=== PATIENT | female | born 1950 | race Caucasian/White ===

== ENCOUNTER 2017-01-20 11:24 | Day surgery (SDC) | payer MEDICARE, OTHER ==
[2017-01-18 11:43] LABS: HEMATOCRIT 43.5 % (36.0-48.0); HEMOGLOBIN 14.7 g/dL (12.0-16.0)
[2017-01-18 11:56] LABS: CALCIUM, SERUM 9.8 MG/DL (8.5-10.4); CHLORIDE, SERUM 99 MMOL/L (96-112); CO2 (CARBON DIOXIDE) 33 MMOL/L (24-34); CREATININE 0.99 MG/DL (0.55-1.02); GFR AFRICAN AMERICAN 69 ML/MIN (>=60); GFR NON AFRICAN AMERICAN 60 ML/MIN (>=60); GLUCOSE, SERUM 102 MG/DL (60-99); SODIUM, SERUM 141 MMOL/L (135-148)
[2017-01-18 11:57] LABS: BUN (BLOOD UREA NITROGEN) 22 MG/DL (6-23)
[2017-01-18 11:59] LABS: ASCORBIC ACID (UR NOT ORDER) NEG (NEG); BILIRUBIN, URINE NEGATIVE (NEG); KETONE, URINE NEGATIVE (NEG); LEUKOCYTE ESTERASE(NOT OR SMALL (NEG); WBC (NOT ORDERED) (RFLEX) 6 (0-5)
--- NOTE | ~2017-01-20 | OP ---
Record Of Operation [facility] [address] [place]. [address] NAME: RAMIN REA : 52 STATUS : [facility]#: [id number] AGE: 66 ADM/REG DATE : 01/20/17 MR#: [id number] REPORT SERV DATE: 01/20/17 DICTATED BY: ROEL RHODES DATE: 01/20/17 REPORT STATUS : Draft TRANSCRIBED BY: MODL DATE: 01/20/17 DATE OF PROCEDURE: 01/20/2017 SURGEON: Roel Rhodes M.D. TITLE OF OPERATION: Cystourethroscopy, transurethral resection of bladder tumor greater than 5 cm, bilateral retrograde pyelograms. ANESTHESIA: Spinal with sedation. COMPLICATIONS: None. IMPLANTS: 18-Kyrgyz Hurt catheter. SPECIMENS: Bladder tumor. INDICATIONS: Ms. Rea is a 66-year-old female with history of low-grade superficial bladder cancer. She has been lost to follow up. She then re-presented with numerous very large intravesical tumors. She has severe COPD and is not a great candidate for general anesthesia with endotracheal intubation. She is undergoing spinal anesthesia followed by transurethral resection of bladder tumor and bilateral retrograde pyelograms. NARRATIVE: The patient was brought to the operating room, identified by her wristband. Spinal anesthesia with sedation was administered. She is then placed in dorsal lithotomy position, and prepped and draped in sterile fashion. Her urethra was sounded to a caliber of 26-Kyrgyz using sounds. A 24-Kyrgyz resectoscope was placed into her urethra and into her bladder with the aid of a trocar. The bladder was then inspected. The ureteral orifices were in normal position and involving tumor. There were approximately four tumors in her bladder. The each tumor was approximately 2 cm in size except for the one tumor in her left lateral wall was about 5 cm in size. Total tumor diameter was over 10 cm. Using a resecting loop, I resected the tumors from their entirety down to the base sequentially. Hemostasis was obtained with electrocautery. There was clearly muscle in the specimen. At one point, the posterior wall did seem a bit thin. There was no ongoing bleeding at the end of the case. No evidence of obvious perforation. At this time, all the bladder tumor pieces were evacuated from the bladder and sent to pathology for analysis. Next cone-tip catheters were introduced sequentially into each ureter. Retrograde pyelograms were shot bilaterally. This demonstrated normal ureters without hydronephrosis or filling defects and normal upper tract anatomy with no filling defects or swelling. There was no ongoing bleeding. The scope was removed. A 16-Kyrgyz Hurt catheter was placed. The balloon was inflated with 10 mL of sterile water. The patient was then was then transferred to the recovery room in stable condition. I will plan on discharging her home with the Hurt catheter and seeing her back in a week. WILL/SHARMILA Record Of [address] [address] NAME: RAMIN REA : [birth year] STATUS : [facility] PAT#: [id number] AGE: 66 ADM/REG DATE : 01/20/17 MR#: [id number] REPORT SERV DATE: 01/20/17 DICTATED BY: ROEL RHODES DATE: 01/20/17 REPORT STATUS : Draft TRANSCRIBED BY: SHARMILA DATE: 01/20/17 Roel Rhodes MD / [id number] CC: MD Haider Omer M.D.
[~2017-01-20 11:24] MED LIST: ASMANEX 30110 MCG IN; ATV.5 PO; BEN25 PO; BUM5 PO; CALAN80 MG PO; CARDCD180 PO; CILOXAN OPH; DALIRESP500 MCG PO; DIAM250B PO; DIFLUCAN; ESTROGEN PO; FORADIL INH; HORMONE SL; KLOR-CON M2020 MEQ PO; LEVAQUIN750 MG PO; NEXIUM40 PO; NYS500UDL PO; OXYGEN; P10 PO; PERFOROM INH; PREDNISONE2.5 MG PO; PRISTIQ50 MG PO; PROTONIX PO; PROVHFA INH; PULMICORT90 MCG INH; SINGULAIR1 PO; SLEEP AID25 MG PO; SPIRIVA INH; T200 PO; VENTOLIN HFA INH; X5 PO; ZOLOFT25 MG PO; [UNRECOGNIZED DRUG - MIXTURE] PO
== END 2017-01-20 20:45 | disposition home or self-care (01) ==
LOC: SDC 11:24
PROVIDERS: Urology
PROC: 0T5B8ZZ Destruction of Bladder, Via Natural or Artificial Opening Endoscopic (ICD-10-PCS; principal; 2017-01-20 12:45)
DX: C67.9 Malignant neoplasm of bladder, unspecified (principal); I10 Essential (primary) hypertension; G47.33 Obstructive sleep apnea (adult) (pediatric); K21.9 Gastro-esophageal reflux disease without esophagitis; F41.9 Anxiety disorder, unspecified; J44.9 Chronic obstructive pulmonary disease, unspecified; R00.0 Tachycardia, unspecified; F17.210 Nicotine dependence, cigarettes, uncomplicated; F32.9 Major depressive disorder, single episode, unspecified; Z88.8 Allergy status to other drugs, medicaments and biological substances; Z88.2 Allergy status to sulfonamides; Z88.1 Allergy status to other antibiotic agents; Z98.890 Other specified postprocedural states; Z79.899 Other long term (current) drug therapy
CPT/HCPCS: 74420; 80048; 81001; 85014; 85018; 87086; 88307; 88313; 93005; A9270-GY; C1758; J0690; J2250; J2405; J9280